=== PATIENT | female | born 2000 | race Caucasian/White ===

== ENCOUNTER 2018-06-20 15:19 | Outpatient (RCR) | payer OTHER | END 2018-07-10 15:07 | disposition home or self-care (01) | LOC: WSOH 15:19 | DX: S80.872A Other superficial bite, left lower leg, initial encounter (principal); S80.812A Abrasion, left lower leg, initial encounter; W54.0XXA Bitten by dog, initial encounter; Y99.0 Civilian activity done for income or pay; Z23 Encounter for immunization ==